=== PATIENT | male | born 1965 | race Caucasian/White ===

== ENCOUNTER → 2024-06-04 07:24 | Outpatient (REF) | payer BC, SELFPAY ==
[2024-06-04 08:44] LABS: ALT (SGPT) 16 U/L (0-50); AST (SGOT) 22 U/L (17-59); Albumin 4.3 g/dl (3.5-5.0); Alkaline Phosphatase 95 U/L (38-126); Blood Urea Nitrogen 22 mg/dl (9-20); Calcium 9.1 mg/dl (8.4-10.2); Carbon Dioxide 23 mmol/L (22-30); Chloride 101 mmol/L (98-107); Glucose 197 mg/dl (70-99); Potassium 5.3 mmol/L (3.5-5.1); Sodium 136 mmol/L (135-145); Total Bilirubin 1.1 mg/dl (0.2-1.3); Total Protein 6.8 g/dl (6.3-8.2); eGFR > 60.00
[2024-06-04 12:31] LABS: Glycohemoglobin (HgbA1c) 9.4 % (4.0-5.6)
== END ==
LOC: REG 07:24
PROVIDERS: ATTENDING PHYSICIAN Internal Medicine Endocrinology, Diabetes & Metabolism; FAMILY PHYSICIAN Family Medicine
DX: E11.9 Type 2 diabetes mellitus without complications (principal)
CPT/HCPCS: 36415; 80053; 83036

== ENCOUNTER → 2024-10-15 07:06 | Outpatient (REF) | payer BC, SELFPAY ==
[2024-10-15 08:55] LABS: ALT (SGPT) 16 U/L (0-50); AST (SGOT) 20 U/L (17-59); Albumin 4.1 g/dl (3.5-5.0); Alkaline Phosphatase 81 U/L (38-126); Blood Urea Nitrogen 22 mg/dl (9-20); Calcium 9.3 mg/dl (8.4-10.2); Carbon Dioxide 26 mmol/L (22-30); Chloride 109 mmol/L (98-107); Glucose 71 mg/dl (70-99); HDL Cholesterol 54 mg/dl; LDL Cholesterol, Calculated 81 mg/dl; Potassium 4.9 mmol/L (3.5-5.1); Sodium 143 mmol/L (135-145); Total Cholesterol 154 mg/dl (50-199); Total Protein 6.8 g/dl (6.3-8.2); Triglyceride 97 mg/dl (10-149); Very Low Density Lipoprotein 19 mg/dl (0-30); eGFR > 60.00
[2024-10-15 09:30] LABS: Protein/creatinine Ratio 5.6; Urine Protein 323 mg/dl
[2024-10-15 10:52] LABS: Glycohemoglobin (HgbA1c) 5.9 % (4.0-5.6)
== END ==
LOC: REG 07:06
PROVIDERS: ATTENDING PHYSICIAN Internal Medicine Endocrinology, Diabetes & Metabolism; FAMILY PHYSICIAN Family Medicine
DX: E11.9 Type 2 diabetes mellitus without complications (principal)
CPT/HCPCS: 36415; 80053; 80061; 82570; 83036; 84156

== ENCOUNTER → 2025-04-04 06:36 | Outpatient (REF) | payer BC, SELFPAY ==
[2025-04-04 07:59] LABS: ALT (SGPT) 15 U/L (0-50); AST (SGOT) 21 U/L (17-59); Albumin 4.5 g/dl (3.5-5.0); Alkaline Phosphatase 82 U/L (38-126); Blood Urea Nitrogen 27 mg/dl (9-20); Calcium 8.9 mg/dl (8.4-10.2); Carbon Dioxide 25 mmol/L (22-30); Chloride 104 mmol/L (98-107); Glucose 105 mg/dl (70-99); HDL Cholesterol 46 mg/dl; LDL Cholesterol, Calculated 69 mg/dl; Potassium 5.5 mmol/L (3.5-5.1); Sodium 134 mmol/L (135-145); Total Protein 7.3 g/dl (6.3-8.2); Very Low Density Lipoprotein 26 mg/dl (0-30); eGFR 42.30
[2025-04-04 08:35] LABS: Glycohemoglobin (HgbA1c) 6.2 % (4.0-5.9)
[2025-04-06 16:35] LABS: ANA, IgG Reflex to HEp-2 None Detected (None Detected)
[2025-04-07 08:17] LABS: Serine Protease-3, IgG 0 AU/mL (0-19)
== END ==
LOC: REG 06:36
PROVIDERS: ATTENDING PHYSICIAN Internal Medicine Endocrinology, Diabetes & Metabolism; FAMILY PHYSICIAN Family Medicine; REFERRING PHYSICIAN Internal Medicine
DX: E11.9 Type 2 diabetes mellitus without complications (principal); R80.9 Proteinuria, unspecified
CPT/HCPCS: 36415; 80053; 80061; 82570; 83036; 83516; 83520; 84100; 84155; 84156; 84165; 86038; 86160; 86335

== ENCOUNTER → 2025-04-18 06:28 | Outpatient (REF) | payer BC, SELFPAY ==
[2025-04-18 07:02] LABS: Hematocrit 40.0 % (39.0-52.0); Hemoglobin 12.9 g/dL (13.0-18.0); Mean Corp Hgb Conc. 32.3 g/dL (33.0-37.0); Mean Corpuscular Volume 89.7 fL (80.0-94.0); Nucleated Red Blood Cells % 0 % (-); Platelet Count 272 10^3/uL (130-400); Red Cell Dist. Width 13.1 % (11.5-14.5)
[2025-04-18 07:13] LABS: Albumin 4.2 g/dl (3.5-5.0); Blood Urea Nitrogen 29 mg/dl (9-20); Calcium 8.9 mg/dl (8.4-10.2); Carbon Dioxide 22 mmol/L (22-30); Chloride 108 mmol/L (98-107); Glucose 107 mg/dl (70-99); Potassium 5.9 mmol/L (3.5-5.1); Sodium 137 mmol/L (135-145); eGFR 45.30
[2025-04-20 17:11] LABS: Phospholipase A2 Receptor, IgG <1:10 (<1:10)
[2025-04-20 19:19] LABS: Aldosterone/Renin Activ Ratio 0.7 ratio (<=25.0); Renin Activity Results 6.0 ng/mL/hr
== END ==
LOC: REG 06:28
PROVIDERS: ATTENDING PHYSICIAN Internal Medicine; FAMILY PHYSICIAN Family Medicine
DX: I10 Essential (primary) hypertension (principal); N17.9 Acute kidney failure, unspecified; R80.9 Proteinuria, unspecified
CPT/HCPCS: 36415; 80069; 82088; 84244; 85025; 86255

== ENCOUNTER → 2025-04-20 06:29 | Outpatient (REF) | payer BC, SELFPAY | LOC: RAD 06:29 | PROVIDERS: ATTENDING PHYSICIAN Internal Medicine; FAMILY PHYSICIAN Family Medicine | DX: R80.9 Proteinuria, unspecified (principal) | CPT/HCPCS: 76770 ==

== ENCOUNTER → 2025-05-01 07:53 | Outpatient (REF) | payer BC, SELFPAY ==
[2025-05-01 09:51] LABS: Albumin 4.3 g/dl (3.5-5.0); Blood Urea Nitrogen 25 mg/dl (9-20); Calcium 9.0 mg/dl (8.4-10.2); Carbon Dioxide 21 mmol/L (22-30); Chloride 108 mmol/L (98-107); Glucose 74 mg/dl (70-99); Potassium 5.5 mmol/L (3.5-5.1); Sodium 137 mmol/L (135-145); eGFR 48.72
== END ==
LOC: REG 07:53
PROVIDERS: ATTENDING PHYSICIAN Internal Medicine; FAMILY PHYSICIAN Family Medicine
DX: R80.9 Proteinuria, unspecified (principal); I10 Essential (primary) hypertension; E78.5 Hyperlipidemia, unspecified
CPT/HCPCS: 36415; 80069